=== PATIENT | female | born 1935 | race Caucasian/White ===

== ENCOUNTER 2016-07-18 10:08 | Inpatient (IN) | payer MEDICARE, BC ==
[~2016-07-18] VITALS: Ht 162.6 cm; Wt 88.7 kg
--- NOTE | ~2016-07-18 | WRIGHTHP ---
[place], [place] PATIENT HISTORY AND PHYSICAL EXAM NAME: TOM DOLAN UNIT #: [id number] ROOM: 507 DOCTOR: HINA WILLETT MD BIRTHDATE: [birth year] DOS: SUBJECTIVE: The patient is 80 years old, comes in with complaints of difficulty breathing. The patient states anytime she exerts self or bend over, she notices increasing shortness of breath. She denies having any chest pains or palpitations, does not have any fever or chills. She was found to have rapid AFib in the office, was found also to be hypoxic with the saturation of about 86 on room air so the patient was admitted to the hospital. This morning, the patient is feeling much better. The heart rate is much improved. She denies having any chest pains or palpitations, does not have any fever or chills. PAST MEDICAL HISTORY: Significant for: 1. Chronic atrial fibrillation, long-term use of anticoagulants. 2. History of diastolic heart failure. 3. Benign hypertension. 4. Hypothyroidism. 5. Postmenopausal osteoporosis. MEDICATIONS: That she is currently on are Diovan, hydrochlorothiazide, Synthroid, Nexium, vitamin D, Boniva, Coumadin. SOCIAL HISTORY: Nonsmoker, does not use any alcohol. OBJECTIVE EXAMINATION: GENERAL: The patient is awake and alert and oriented. VITAL SIGNS: Blood pressure is 111/57, pulse of 90s, respirations 18, temperature 97.8. LUNGS: Diminished breath sounds. No wheezes, rales or rhonchi heard. HEART: Regular. ABDOMEN: Obese, soft, nontender. EXTREMITIES: Without any edema. ASSESSMENT AND PLAN: 1. Acute hypoxic respiratory failure from acute diastolic dysfunction and the acute diastolic heart failure. Chest x-ray is pending. One dose of IV diuretics were given yesterday and the patient has diuresed nicely and her shortness of breath is improved. 2. Chronic atrial fibrillation with the rapid ventricular response, readjustment of cardiac medications were made. The plan is to discharge her to home tomorrow. Two doses of digoxin were given yesterday to control the heart rate. [place], [place] PATIENT HISTORY AND PHYSICAL EXAM NAME: TOM DOLAN UNIT #: [id number] ROOM: 507 DOCTOR: HINA WILLETT MD BIRTHDATE: [birth year] HINA WILLETT MD CM:HISPHYS:PATIENT HISTORY AND PHYSICAL EXAMINATION [id number] HINA WILLETT MD 07/20/16 0943 interface
--- NOTE | ~2016-07-18 | DS ---
[place], [place] DISCHARGE SUMMARY NAME: TOM DOLAN UNIT #: [id number] ROOM: 507 DOCTOR: HINA WILLETT MD BIRTHDATE: [birth year] DOS: 07/20/2016 DIAGNOSES: 1. Acute hypoxic respiratory failure. 2. Diastolic congestive heart failure, acute. 3. Chronic atrial fibrillation with rapid ventricular response. 4. Hypercoagulable state. 5. Long-term use of anticoagulants. 6. Benign hypertension. 7. Hypothyroidism. 8. Postmenopausal osteoporosis. 9. Osteoarthritis, primarily of the knee. HOSPITAL COURSE: This patient is 80 years old, comes in with complaints of difficulty breathing. The patient was evaluated in the office and was admitted. The patient denies having any chest pains, palpitations but she has been increasingly short of breath both on exertion and at rest. She was found to have rapid ventricular response of AFib, protime was pretty high with an INR of 4.8 in the office, we admitted the patient. She also was quite hypoxic. Oxygen saturation was in the 80s on room air. After evaluation, she was admitted with acute hypoxic respiratory failure from acute diastolic CHF. The patient was placed on diuretics, added low dose beta blockers and digoxin to control the heart rate with the diuretics she has diuresed nicely. Her shortness of breath and leg edema has improved. She is no longer hypoxic and she is on room air saturating at high 90s. Chest x-ray surprisingly did not show any evidence of CHF, but clinically the patient appears to be in CHF. Labs were all within normal limits. The patient was supposed to have the Coumadin held for 2 days, so today it will be restarted as an outpatient. She is overall stable and improved. She is advised to cut back on a salt intake. DISCHARGE MEDICATIONS: Carvedilol 3.125 twice a day, valsartan 160 mg daily, Lasix 40 Saturday, Saturday and Saturday; Nexium 40 daily, levothyroxine 100 mcg daily, Boniva 150 monthly, warfarin 2.5 daily, vitamin D2 of 50,000 units weekly. [place], [place] DISCHARGE SUMMARY NAME: TOM DOLAN UNIT #: [id number] ROOM: 507 DOCTOR: HINA WILLETT MD BIRTHDATE: [birth year] HINA WILLETT MD CM:NAVYA 6 [phone] HINA WILLETT MD 07/20/162028 interface
--- NOTE | ~2016-07-18 | PR ---
[place], [place] PROGRESS NOTE NAME: TOM DOLAN UNIT #: [id number] ROOM: 507 DOCTOR: HINA WILLETT MD BIRTHDATE: [birth year] DOS: SUBJECTIVE: The patient is 80 years old, comes in with complaints of difficulty breathing. The patient states anytime she exerts self or bend over, she notices increasing shortness of breath. She denies having any chest pains or palpitations, does not have any fever or chills. She was found to have rapid AFib in the office, was found also to be hypoxic with the saturation of about 86 on room air so the patient was admitted to the hospital. This morning, the patient is feeling much better. The heart rate is much improved. She denies having any chest pains or palpitations, does not have any fever or chills. PAST MEDICAL HISTORY: Significant for: 1. Chronic atrial fibrillation, long-term use of anticoagulants. 2. History of diastolic heart failure. 3. Benign hypertension. 4. Hypothyroidism. 5. Postmenopausal osteoporosis. MEDICATIONS: That she is currently on are Diovan, hydrochlorothiazide, Synthroid, Nexium, vitamin D, Boniva, Coumadin. SOCIAL HISTORY: Nonsmoker, does not use any alcohol. OBJECTIVE EXAMINATION: GENERAL: The patient is awake and alert and oriented. VITAL SIGNS: Blood pressure is 111/57, pulse of 90s, respirations 18, temperature 97.8. LUNGS: Diminished breath sounds. No wheezes, rales or rhonchi heard. HEART: Regular. ABDOMEN: Obese, soft, nontender. EXTREMITIES: Without any edema. ASSESSMENT AND PLAN: 1. Acute hypoxic respiratory failure from acute diastolic dysfunction and the acute diastolic heart failure. Chest x-ray is pending. One dose of IV diuretics were given yesterday and the patient has diuresed nicely and her shortness of breath is improved. 2. Chronic atrial fibrillation with the rapid ventricular response, readjustment of cardiac medications were made. The plan is to discharge her to home tomorrow. Two doses of digoxin were given yesterday to control the heart rate. [place], [place] PROGRESS NOTE NAME: TOM DOLAN UNIT #: [id number] ROOM: 507 DOCTOR: HINA WILLETT MD BIRTHDATE: [birth year] HINA WILLETT MD CM:PNTRANS [phone] HINA WILLETT MD 07/20/16 0944 LUIS WEBER.LIANA
--- NOTE | ~2016-07-18 | PR ---
[place], [place] PROGRESS NOTE NAME: TOM DOLAN UNIT #: [id number] ROOM: 507 DOCTOR: HINA WILLETT MD BIRTHDATE: [birth year] DOS: 07/20/2016 SUBJECTIVE: The patient is feeling fine and her shortness of breath has completely resolved. She has diuresed nicely. OBJECTIVE: VITAL SIGNS: Graphic trend shows a pressure of 196/60, pulse of 53, respirations 18 and temperature 97.9. LUNGS: Clear. HEART: Regular. ABDOMEN: Soft. EXTREMITIES: Without any edema. ASSESSMENT AND PLAN: 1. Chronic atrial fibrillation with rapid ventricular response, which is much improved. 2. Diastolic congestive heart failure, which is corrected. 3. Plan is to discharge her to home today. Follow up as an outpatient. HINA WILLETT MD CM:PNTRANS [id number] HINA WILLETT MD 07/21/16 0254 interface
[~2016-07-18 10:08] MED LIST: ARTHROTEC 75 751 ECT PO; ASMANEX220 MCG INH; ASPIRIN81 M1 PO; BP PILL; COLACE100 MG PO; DAYPRO600 M1 PO; DILTIAZEM HCL90 MG PO; DIOVAN HCT 12.51 TA2 PO; ELIQUIS5 M1 PO; HYDROCODONE BIT1 T11 PO; IBANDRONATE SO150 M1 PO; LOPRESSOR25 MG PO; LOVENOX30 MG/0.3 SC; MACROBID100 M1 PO; METOPROLOL TART50 M1 PO; NAPROSYN500 MG PO; NEXIUM40 MG PO; NORVASC2.5 MG PO; PERCOCET 325 MG1 TA3 PO; ROBAXIN750 MG PO; SYNTHROID,LEVO50 MCG; SYNTHROID0.112 MG PO; Synthroid,Lev100 MCG PO; VITAMIN D1000 IU; WARFARIN2 MG PO
[2016-07-18 10:35] VITALS: BP 138/100
[2016-07-18] MEDS ORDERED: DIOVAN/HCT 12.51 TAB PO (11:21)
[2016-07-18] MEDS ORDERED: VITAMIN D50000 I3 PO (11:33)
[2016-07-18 12:00] VITALS: BP 128/100
[2016-07-18 12:12] LABS: BASO # 0.1 10*3/uL (0.0-0.1); BASO % 0.9 % (0.0-1.0); EOS # 0.1 10*3/uL (0.0-0.4); EOS % 1.4 % (1.0-4.0); HEMATOCRIT 47.5 % (37.0-47.0); HEMOGLOBIN 15.1 g/dl (12.0-16.0); LYMPH # 1.7 10*3/uL (1.3-4.4); LYMPH % 26.8 % (27.0-41.0); MEAN CELL VOLUME 90.6 fl (81.0-99.0); MEAN CORPUSCULAR HGB 28.8 pg (27.0-31.0); MEAN CORPUSCULAR HGB CONC 31.8 g/dl (33.0-37.0); MEAN PLATELET VOLUME 10.6 fl (9.6-12.3); MONO # 0.5 10*3/uL (0.1-1.0); MONO % 7.4 % (3.0-9.0); NEUT % 63.2 % (47.0-73.0); PLATELET COUNT AUTOMATED 156 10*3/uL (130-400); RED BLOOD COUNT 5.24 10*6/uL (4.10-5.10); RED CELL DISTRI WIDTH 13.3 % (0-14.5); WHITE BLOOD COUNT 6.3 10*3/uL (4.8-10.8)
[2016-07-18 12:29] LABS: BUN 13 mg/dl (7-24); CARBON DIOXIDE 32 mmol/L (21-32); CHLORIDE 103 mmol/L (98-107); EST GLOM FILT AFRICAN AMERICAN > 60 ml/min; GLUCOSE 98 mg/dL (65-99); POTASSIUM 4.3 mmol/L (3.5-5.1); SODIUM 140 mmol/L (136-145)
[2016-07-18 14:46] VITALS: BP 110/68
[2016-07-18 16:00] VITALS: BP 117/68
[2016-07-18 20:00] VITALS: BP 99/60
[2016-07-19] VITALS: BP 105/73
[2016-07-19 07:31] LABS: PROTHROMBIN TIME 33.9 SECONDS (9.0-12.4)
[2016-07-19 07:41] LABS: DIGOXIN 0.55 ng/ml (0.8-2.0)
[2016-07-19 08:00] VITALS: BP 111/57; BP 118/62
[2016-07-19 12:00] VITALS: BP 109/72
[2016-07-19 16:00] VITALS: BP 110/58
[2016-07-19 20:00] VITALS: BP 107/71
[2016-07-20] VITALS: BP 99/50
[2016-07-20 08:00] VITALS: BP 96/60
[2016-07-20] MEDS ORDERED: LASIX40 MG PO (09:13)
[2016-07-20] MEDS ORDERED: VALSARTAN80 MG PO (09:13)
[2016-07-20] MEDS ORDERED: CARVEDILOL3.125 MG PO (09:13)
== END 2016-07-20 09:42 | disposition home or self-care (01) | DRG 291 ==
LOC: 5E 10:08
PROVIDERS: Internal Medicine
DX: I11.0 Hypertensive heart disease with heart failure (principal); J96.01 Acute respiratory failure with hypoxia; D68.59 Other primary thrombophilia; I50.31 Acute diastolic (congestive) heart failure; I48.2 Chronic atrial fibrillation; M17.10 Unilateral primary osteoarthritis, unspecified knee; M81.0 Age-related osteoporosis without current pathological fracture; E03.9 Hypothyroidism, unspecified; Z79.01 Long term (current) use of anticoagulants

== ENCOUNTER 2016-07-22 12:37 | Emergency (ER) | payer MEDICARE, BC ==
[~2016-07-22] VITALS: Wt 90.7 kg
[~2016-07-22 12:37] MED LIST changes: +CARVEDILOL3.125 MG PO; +DIOVAN/HCT 12.51 TAB PO; +LASIX40 MG PO; +VALSARTAN80 MG PO; +VITAMIN D50000 I3 PO
[2016-07-22 13:08] LABS: BASO # 0.1 10*3/uL (0.0-0.1); BASO % 0.9 % (0.0-1.0); EOS # 0.2 10*3/uL (0.0-0.4); EOS % 2.6 % (1.0-4.0); HEMOGLOBIN 16.2 g/dl (12.0-16.0); LYMPH # 2.1 10*3/uL (1.3-4.4); MEAN CELL VOLUME 89.3 fl (81.0-99.0); MEAN CORPUSCULAR HGB 28.9 pg (27.0-31.0); MEAN CORPUSCULAR HGB CONC 32.4 g/dl (33.0-37.0); MEAN PLATELET VOLUME 10.7 fl (9.6-12.3); MONO # 0.6 10*3/uL (0.1-1.0); MONO % 8.1 % (3.0-9.0); NEUT # 4.6 10*3/uL (2.3-7.9); NEUT % 59.9 % (47.0-73.0); PLATELET COUNT AUTOMATED 198 10*3/uL (130-400); RED CELL DISTRI WIDTH 13.2 % (0-14.5); WHITE BLOOD COUNT 7.6 10*3/uL (4.8-10.8)
[2016-07-22 13:17] LABS: INTERNATIONAL NORM RATIO 2.2 (2.0-3.5); PROTHROMBIN TIME 24.7 SECONDS (9.0-12.4)
[2016-07-22 13:24] LABS: ALBUMIN 3.5 gm/dl (3.1-4.5); ALKALINE PHOSPHATASE 88 U/L (45-117); BILIRUBIN, TOTAL 0.6 mg/dl (0.2-1.0); BUN 20 mg/dl (7-24); CARBON DIOXIDE 24 mmol/L (21-32); CHLORIDE 103 mmol/L (98-107); EST GLOM FILT AFRICAN AMERICAN > 60 ml/min; GLUCOSE 101 mg/dL (65-99); MAGNESIUM 1.9 mg/dL (1.5-2.1); POTASSIUM 4.5 mmol/L (3.5-5.1); SGOT/AST 29 IU/L (3-35); SGPT/ALT 17 U/L (12-78); SODIUM 138 mmol/L (136-145); TOTAL PROTEIN 6.8 gm/dL (6.4-8.2)
[2016-07-22 13:28] LABS: C-REACTIVE PROTEIN < 0.29 MG/DL (0-0.3); TROPONIN I < 0.015 ng/ml (<0.045)
== END 2016-07-22 15:26 | disposition home or self-care (01) ==
LOC: ED 12:37
PROVIDERS: Student in an Organized Health Care Education/Training Program
DX: S01.01XA Laceration without foreign body of scalp, initial encounter (principal); Z79.82 Long term (current) use of aspirin; Z79.01 Long term (current) use of anticoagulants; Z90.49 Acquired absence of other specified parts of digestive tract; Z79.899 Other long term (current) drug therapy; W18.31XA Fall on same level due to stepping on an object, initial encounter; Y93.89 Activity, other specified; Y92.9 Unspecified place or not applicable; Y99.9 Unspecified external cause status

== ENCOUNTER 2016-09-25 11:30 | Emergency (ER) | payer MEDICARE, BC ==
[~2016-09-25] VITALS: Ht 165.1 cm; Wt 88.9 kg
[2016-09-25] MEDS ORDERED: WARFARIN2 MG PO ×2 (11:38→11:39)
[2016-09-25] MEDS ORDERED: VALSARTAN-HCTZ1 EAC1 PO (11:41)
[2016-09-25] MEDS ORDERED: CARVEDILOL12.5 MG PO (11:41)
== END 2016-09-25 13:29 | disposition home or self-care (01) ==
LOC: ED 11:30
DX: S90.31XA Contusion of right foot, initial encounter (principal); Z79.02 Long term (current) use of antithrombotics/antiplatelets; Z79.899 Other long term (current) drug therapy; W22.8XXA Striking against or struck by other objects, initial encounter; Y93.89 Activity, other specified; Y92.812 Truck as the place of occurrence of the external cause; Y99.8 Other external cause status

== ENCOUNTER → 2016-11-16 | Outpatient (CLI) | payer MEDICARE, BC ==
[~2016-11-16] MED LIST changes: +CARVEDILOL12.5 MG PO; +VALSARTAN-HCTZ1 EAC1 PO
[2016-11-16 09:15] LABS: ALBUMIN 3.5 gm/dl (3.1-4.5); CREATININE 1.4 mg/dL (0.55-1.02); POTASSIUM 3.7 mmol/L (3.5-5.1)
[2016-11-16 09:22] LABS: THYROID STIM HORMONE (HS) 2.6 uIU/ml (0.358-4.75)
== END | disposition home or self-care (01) ==
LOC: LAB 01:55
PROVIDERS: Internal Medicine Cardiovascular Disease
DX: J90 Pleural effusion, not elsewhere classified (principal); I10 Essential (primary) hypertension; Z79.899 Other long term (current) drug therapy; Z86.73 Personal history of transient ischemic attack (TIA), and cerebral infarction without residual deficits

== ENCOUNTER 2017-08-20 15:43 | Inpatient (IN) | payer MEDICARE, BC ==
[~2017-08-20] VITALS: Ht 165.1 cm; Wt 89.2 kg
[2017-08-20] VITALS (10 sets, daily range): BP systolic 78–141; BP diastolic 32–91
--- NOTE | ~2017-08-20 | PR ---
[place], [place] PROGRESS NOTE NAME: TOM DOLAN UNIT #: [id number] ROOM: [facility] DOCTOR: HINA WILLETT MD BIRTHDATE: [birth year] DOS: 08/23/2017 SUBJECTIVE: The patient is about the same, had the pacemaker and she feels good and is not having any complaints. OBJECTIVE: VITAL SIGNS: Blood pressure is 116/58, pulse of 60, respirations 12, temperature 98.1. LUNGS: Clear. HEART: Regular. ABDOMEN: Soft. EXTREMITIES: Without any edema. LABORATORY DATA: Echocardiogram shows improvement in the LV function. Protime is still high with an INR of 4.0. ASSESSMENT AND PLAN: 1. The patient with severe bradycardia following beta ruthann. 2. History of atrial fibrillation, on long-term use of anticoagulants. 3. Pacemaker placement for bradycardia, stable and the plan is to discharge her today. HINA WILLETT MD CM:PNTRANS [phone] HINA WILLETT MD 08/23/17 1243 interface
--- NOTE | ~2017-08-20 | DS ---
[place], [place] DISCHARGE SUMMARY NAME: TOM DOLAN UNIT #: [id number] ROOM: [facility] DOCTOR: HINA WILLETT MD BIRTHDATE: [birth year] DOS: 08/23/2017 DATE OF ADMISSION: 08/20/2017 DATE OF DISCHARGE: 08/23/2017 DIAGNOSES: 1. Chronic atrial fibrillation, on long-term use of anticoagulants with elevated protimes. 2. Bradycardia with a junctional escape rhythm, status post pacemaker placement. 3. Moderate to severe pulmonary hypertension. 4. Benign hypertension with a normal ejection fraction. 5. History of cardiomyopathy. 6. History of primary osteoarthritis of knee joint, status post replacement. HOSPITAL COURSE: The patient is very well known to us, comes in with complaints of bruises all over her body and dizzy and lightheaded and chest pain. After she was found to be extremely bradycardic, heart rate in the 20s after being evaluated, she was admitted to ICU. Please refer to Dr. Garcia's H and P for further details. Dr. Merritt was consulted. Her medications were all discontinued. The patient was taken for pacemaker and she has been stable after that. Protime is still pretty elevated. Coumadin has been on hold for several days. The patient is stable and is not having any complaints today, so the plan is to discharge. Visiting nurses will be consulted. Follow up with Dr. Merritt as well as me. Protime will be done on Saturday. Coumadin is on hold. DISCHARGE MEDICATIONS: Will be Nexium 40 daily, levothyroxine 100 mcg daily, Boniva 150 daily, vitamin D 50,000 once a week, Lasix 40 daily, Coreg 12.5 b.i.d., valsartan 160 half a tablet daily. [place], [place] DISCHARGE SUMMARY NAME: TOM DOLAN UNIT #: [id number] ROOM: [facility] DOCTOR: HINA WILLETT MD BIRTHDATE: [birth year] HINA WILLETT MD CM:DISCHARG [phone] HINA WILLETT MD 08/23/17 1450 interface
--- NOTE | ~2017-08-20 | PR ---
[place], [place] PROGRESS NOTE NAME: TOM DOLAN UNIT #: [id number] ROOM: [facility] DOCTOR: HINA WILLETT MD BIRTHDATE: [birth year] DOS: 08/22/2017 SUBJECTIVE: The patient is feeling good. She has occasional episodes of tightness in the chest. She is going for a pacemaker this morning. PHYSICAL EXAMINATION: VITAL SIGNS: Pressure is 128/50, pulse of 50, respirations 12, temperature 98.1. LUNGS: Diminished breath sounds, clear. HEART: Regular. ABDOMEN: Obese, soft. EXTREMITIES: Without any edema. ASSESSMENT AND PLAN: Includes: 1. Severe bradycardia awaiting pacemaker. 2. Cardiomyopathy. We will restart Coreg after the pacemaker is placed. HINA WILLETT MD CM:PNTRANS [id number] [id number] HINA WILLETT MD 08/30/17 0935 interface
--- NOTE | ~2017-08-20 | WRIGHTHP ---
[place], [place] PATIENT HISTORY AND PHYSICAL EXAM [id number] UNIT #: [id number] ROOM: [facility] DOCTOR: JARED MOLINA MD BIRTHDATE: [birth year] DOS: 08/20/2017 HISTORY OF PRESENT ILLNESS: The patient is a 81-year-old female with previous history of: Atrial fibrillation, converted to normal sinus rhythm with amiodarone and cardioversion earlier this year. The patient anticoagulated with Coumadin. History of diastolic type congestive heart failure. Benign essential hypertension. Hypothyroidism. History of osteoarthritis of the knee. Postmenopausal osteoporosis. The patient presented to the Emergency Department with elevated INR and bruising off and on and her INR was found to be elevated to 7 but incidental finding was that the patient was bradycardic at the heart rate of as low as 26 beats per minute and it was a sinus bradycardia. Further questioning revealed that the patient has been dizzy off and on, especially when getting up from a sitting position, but no fainting episodes. No chest pain, no shortness of breath. REVIEW OF SYSTEMS: LUNGS: No increasing shortness of breath. GASTROINTESTINAL: No nausea, vomiting, diarrhea or constipation. CARDIOVASCULAR: History of dizziness off and on and postural hypotension. FAMILY HISTORY: Noncontributory. HOME MEDICATIONS: Amiodarone, furosemide, levothyroxine, Protonix, vitamin D, Coreg. ALLERGIES: No known drug allergies. PHYSICAL EXAMINATION: GENERAL: Alert and oriented x 3, in no visible distress. VITAL SIGNS: Heart rate is slow. HEENT AND NECK: Extraocular movements are intact. Sclerae are anicteric. Oral mucosa is moist and clean. No obvious facial weakness. Neck is supple without any lymphadenopathy. No thyromegaly. No JVD. No carotid arterial bruits. LUNGS: Clear to auscultation. No wheezing. No rhonchi. CARDIOVASCULAR SYSTEM: Heart rate is regular in rate and rhythm. S1 and S2 normally audible. No significant murmur or any other abnormal cardiac sounds. ABDOMEN: Soft, nontender. No obvious organomegaly. Bowel sounds are present. No obvious herniation. EXTREMITIES: Without significant cyanosis or edema. Warm to touch. CENTRAL NERVOUS SYSTEM: Alert and oriented x 3. Cranial nerves II-XII are intact. Speech is normal. The patient is able to move all extremities. Normal muscle strength. Deep tendon reflexes are equal on both sides. Plantars were downgoing. LABORATORY DATA: INR elevated at 7. Magnesium level 2.1, hemoglobin 10.1, normal platelets. IMPRESSION: 1. The patient with severe coagulopathy with INR of 7. Coumadin to be held back. [place], [place] PATIENT HISTORY AND PHYSICAL EXAM NAME: TOM DOLAN UNIT #: [id number] ROOM: [facility] DOCTOR: JESSE WINN,JARED Mehta BIRTHDATE: [birth year] 2. Severe sinus bradycardia with history of recurrent dizziness and lightheadedness. I am stopping Coreg and I will let Dr. Merritt, her med dir to decide about the amiodarone, which she takes for previous history of chronic atrial fibrillation. 3. Chronic diastolic type congestive heart failure. The patient to be continued on Lasix. 4. Hypothyroidism, treated with levothyroxine. The patient to be closely monitored in the ICU for severe bradycardia, which is symptomatic. INR is to be monitored daily. Coumadin is on hold. JARED MOLINA MD CM:HISPHYS:PATIENT HISTORY AND PHYSICAL EXAMINATION 14 23 JARED MOLINA MD 08/20/172022 interface
--- NOTE | ~2017-08-20 | PR ---
[place], [place] PROGRESS NOTE NAME: TOM DOLAN UNIT #: [id number] ROOM: [facility] DOCTOR: HINA WILLETT MD BIRTHDATE: [birth year] DOS: SUBJECTIVE: The patient is not having any complaints. She actually feels a little bit better than yesterday. OBJECTIVE: VITAL SIGNS: Graphic trend shows a pressure of 110/52, pulse of 41, respirations 12, temperature 97.7. LUNGS: Clear. HEART: Irregular. ABDOMEN: Obese. EXTREMITIES: Without any edema. LABORATORY DATA: None available today. Protime is still high with an INR of 5.3. ASSESSMENT AND PLAN: 1. Significant bradycardia and the patient is off Coreg. 2. Cardiomyopathy, ejection fraction of 35%-40%. The patient will have a repeat echocardiogram, may require a pacemaker for tachybrady versus an AICD pacemaker for her cardiomyopathy. Discussed with Dr. Merritt in detail and he will see the patient this morning and then will decide. 3. Long-term use of anticoagulants. The patient's protime is high, but it is slowly trending down. No new medications ordered. HINA WILLETT MD CM:PNTRANS [phone] HINA WILLETT MD 08/22/17 0135 interface
--- NOTE | ~2017-08-20 | O ---
[place], [place] OPERATIVE NOTE NAME: TOM DOLAN UNIT #: [id number] ROOM: [facility] DOCTOR: CAMILLE BARRERA MD BIRTHDATE: [birth year] DOS: 08/22/2017 PROCEDURE: Implantation of a dual chamber pacemaker. PREOPERATIVE DIAGNOSIS: Severe bradycardia and atrial fibrillation despite being off beta ruthann for 48 hours. POSTOPERATIVE DIAGNOSIS: Severe bradycardia and atrial fibrillation despite being off beta ruthann for 48 hours. NARRATIVE: The procedure was done in the operating room. Sedation was provided by the anesthesia service. Left subclavian area was prepped and draped for a sterile approach. 1% lidocaine was infiltrated locally and an 18-gauge Cook needle was introduced into the left subclavian vein. On first attempt, a J guidewire was then advanced into the right atrium and under fluoroscopy, a 4 cm incision was made below and parallel to the left clavicle traversing the entry side of the J guidewire. A 9-Danish peel-away sheath was then introduced without difficulty and a tined ventricular lead was then introduced into the right atrium. A curved stylet was introduced to advance the lead into the right ventricle. A straight stylet was introduced to negotiate the tip of the lead into the apex of the right ventricle and this was accomplished without difficulty. The measured data was satisfactory. A 7-Danish sheath was then introduced into the subclavian vein over a J guidewire that was left behind. The wire was removed and a screw in atrial lead was introduced into the right atrium. A J curved stylet was introduced which negotiated the tip of the lead into the right atrial appendage. It was screwed in place and measured, it was very satisfactory. The length of the leads was optimized and the sleeves on the leads were advanced to the entry side and tied in 3-0 Vicryl. A 3-0 Vicryl was used to immobilize the leads to the floor of the pacemaker pocket. There was some bleeding from the puncture site. Therefore, a single pursestring suture with 3-0 chromic catgut was placed and that stopped the bleeding. The pocket was irrigated with an antibiotic solution. The leads were then attached to the pacemaker generator, which was placed in the pocket with the leads located posteriorly. A single 3-0 Vicryl suture was used to immobilize the generator. Subcutaneous tissue was closed in 2 layers with 3-0 chromic catgut. This resulted in excellent skin apposition, no bleeding was identified and Dermabond was applied followed by application of a pressure dressing. CAR DEALER: None. SPECIMEN: None. BLOOD LOSS: None. COMPLICATIONS: None. The pacemaker generator was Medtronic, model A2DR01, serial number [id number]. The right atrial screw and lead model was 5076 - 52, serial number [id number] by Med[employer]. The ventricle lead model was [id number], serial number [id number], again by [employer]. [place], [place] OPERATIVE NOTE NAME: TOM DOLAN UNIT #: [id number] ROOM: [facility] DOCTOR: CAMILLE BARRERA MD BIRTHDATE: [birth year] MEASURED DATA: The P waves measured at 2.5 millivolts, impedance of 772 and threshold about 2.6 milliamps. The ventricle lead had a detected R-wave of 17 millivolts, impedance of 1302 and a threshold 1. For 11 millivolts and threshold of 1.0, impedance 1305. CAMILLE BARRERA MD CM:OPRECORD:OPERATIVE NOTE 1041 1303 JARED BARRERA MD 09/18/17 1340 interface
--- NOTE | ~2017-08-20 | EKG ---
[place], [place] ELECTROCARDIOGRAM REPORT NAME: TOM DOLAN UNIT #: [id number] ROOM: [facility] DOCTOR: CAMILLE BARRERA MD BIRTHDATE: [birth year] DOS: 08/20/2017 TIME: 1614 hours3 FINDINGS: 1. Junctional rhythm at 27 beats per minute. 2. An abnormal ECG. 3. No previous tracing is available for comparison. CAMILLE BARRERA MD CM:EKGRPT:ELECTROCARDIOGRAM REPORT [id number] CAMILLE BARRERA MD
--- NOTE | ~2017-08-20 | HM ---
[place], [place] HOLTER MONITOR REPORT NAME: TOM DOLAN UNIT #: [id number] ROOM: [facility] DOCTOR: CAMILLE BARRERA MD BIRTHDATE: [birth year] DOS: 08/22/2017 PROCEDURE: Implantation of a dual chamber pacemaker. PREOPERATIVE DIAGNOSIS: Severe bradycardia and atrial fibrillation despite being off beta ruthann for 48 hours. POSTOPERATIVE DIAGNOSIS: Severe bradycardia and atrial fibrillation despite being off beta ruthann for 48 hours. NARRATIVE: The procedure was done in the operating room. Sedation was provided by the anesthesia service. Left subclavian area was prepped and draped for a sterile approach. 1% lidocaine was infiltrated locally and an 18-gauge Cook needle was introduced into the left subclavian vein. On first attempt, a J guidewire was then advanced into the right atrium and under fluoroscopy, a 4 cm incision was made below and parallel to the left clavicle traversing the entry side of the J guidewire. A 9-Zambian peel-away sheath was then introduced without difficulty and a tined ventricular lead was then introduced into the right atrium. A curved stylet was introduced to advance the lead into the right ventricle. A straight stylet was introduced to negotiate the tip of the lead into the apex of the right ventricle and this was accomplished without difficulty. The measured data was satisfactory. A 7-Zambian sheath was then introduced into the subclavian vein over a J guidewire that was left behind. The wire was removed and a screw in atrial lead was introduced into the right atrium. A J curved stylet was introduced which negotiated the tip of the lead into the right atrial appendage. It was screwed in place and measured, it was very satisfactory. The length of the leads was optimized and the sleeves on the leads were advanced to the entry side and tied in 3-0 Vicryl. A 3-0 Vicryl was used to immobilize the leads to the floor of the pacemaker pocket. There was some bleeding from the puncture site. Therefore, a single pursestring suture with 3-0 chromic catgut was placed and that stopped the bleeding. The pocket was irrigated with an antibiotic solution. The leads were then attached to the pacemaker generator, which was placed in the pocket with the leads located posteriorly. A single 3-0 Vicryl suture was used to immobilize the generator. Subcutaneous tissue was closed in 2 layers with 3-0 chromic catgut. This resulted in excellent skin apposition, no bleeding was identified and Dermabond was applied followed by application of a pressure dressing. MASS SPEC: None. SPECIMEN: None. BLOOD LOSS: None. COMPLICATIONS: None. The pacemaker generator was Medtronic, model A2DR01, serial number [id number]. The right atrial screw and lead model was 5076 - 52, serial number [id number] by [employer]. The ventricle lead model was [id number], serial number [id number], again by [employer]. [place], [place] HOLTER MONITOR REPORT NAME: TOM DOLAN UNIT #: [id number] ROOM: [facility] DOCTOR: CAMILLE BARRERA MD BIRTHDATE: [birth year] MEASURED DATA: The P waves measured at 2.5 millivolts, impedance of 772 and threshold about 2.6 milliamps. The ventricle lead had a detected R-wave of 17 millivolts, impedance of 1302 and a threshold 1. For 11 millivolts and threshold of 1.0, impedance 1305. CAMILLE BARRERA MD CM:HOLTER:HOLTER MONITOR REPORT 1041 1303 JARED BARRERA MD
--- NOTE | ~2017-08-20 | EKG ---
[place], [place] ELECTROCARDIOGRAM REPORT NAME: TOM DOLAN UNIT #: [id number] ROOM: [facility] DOCTOR: CAMILLE BARRERA MD BIRTHDATE: [birth year] DOS: 08/21/2017 TIME: 0742 hours. FINDINGS: 1. Normal sinus rhythm with long pause and junctional escape beats with 3.2 second pause. 2. Low voltage ECG. 3. No previous tracing is available for comparison. CAMILLE BARRERA MD CM:EKGRPT:ELECTROCARDIOGRAM REPORT [id number] 0107 CAMILLE BARRERA MD
--- NOTE | ~2017-08-20 | CON ---
[place], [place] REPORT OF CONSULTATION NAME: TOM DOLAN UNIT #: [id number] ROOM: [facility] DOCTOR: CAMILLE BARRERA MD BIRTHDATE: [birth year] DOS: 08/21/2017 HISTORY OF PRESENT ILLNESS: This is a 81-year-old [place] woman with a history of essential hypertension, atrial fibrillation and a right-sided stroke. She has never had diabetes mellitus, COPD, or cancer, although perhaps had urinary tract infections. She had tonsillectomy, cholecystectomy and hysterectomy in the remote past and bilateral knee replacement too. She was seen in the Emergency Department because of ecchymotic areas of the left arm and while she was in the hospital, she was found to have a very slow heart rate. She has been feeling a little tired and sleepy, has had spinning sensation and weakness, but she has never passed out. She has been a little more short of breath than usual, but no orthopnea or swelling of the lower extremities. She has been taking her medication regularly and she does not believe she took any extra pills. In the Emergency Department, she was found to have profound bradycardia with heart rate in the 20s and was brought to the hospital to the ICU, where I was consulted. She was started on a dopamine drip, and amiodarone and carvedilol were discontinued. HOME MEDICATIONS: Included warfarin 4 mg alternating with 2 mg daily, Nexium 40 mg daily, levothyroxine 100 mcg daily, carvedilol 12.5 mg b.i.d., amiodarone 200 mg daily, and vitamin D. PHYSICAL EXAMINATION: GENERAL: This is a patient, who is very pleasant, alert, oriented. Her complexion is fine. She is not in any distress. There is no anemia, thyromegaly, or finger clubbing. VITAL SIGNS: Pulse is 56 and regular, blood pressure 112/42. NECK: JVP is normal. AJR is negative. No bruit in the neck. CARDIAC: Auscultation reveals a grade 2/6 pansystolic murmur over the apex, the A2 is of normal intensity. There is no edema in the lower extremity. Pedal pulses are palpable. RESPIRATORY: She has kyphosis and has crackles in the lower zones, more so on the right side. LABORATORY DATA: An ECG initially showed a junctional rhythm with heart rate in the 20s. Second ECG showed some atrial activity. Dopamine was discontinued about 10 minutes ago and she has sinus bradycardia with a heart rate around 49 to 52 beats per minute. Lab is unremarkable. Chest x-ray did not show any pulmonary edema. IMPRESSION: 1. This patient with a history of atrial fibrillation, has profound bradycardia/junctional escape rhythm due to the use of amiodarone and carvedilol. 2. There is no clinical or radiographic evidence of heart failure. 3. She has moderate to severe pulmonary hypertension. An echocardiogram was done today. It demonstrated an LV ejection fraction of [place], [place] REPORT OF CONSULTATION NAME: TOM DOLAN UNIT #: [id number] ROOM: [facility] DOCTOR: CAMILLE BARRERA MD BIRTHDATE: [birth year] 65% and normal right ventricular systolic function, left atrial enlargement and moderate mitral regurgitation, moderate tricuspid regurgitation with pulmonary artery systolic pressure of 60 mmHg, which indicates [id number] pulmonary hypertension. RECOMMENDATIONS: Amiodarone and carvedilol should be discontinued permanently and in a few days, propafenone 150 every 8 hours should be instituted to keep her in sinus rhythm. There is no indication for a pacemaker insertion at this time. I thank you for this consult. CAMILLE BARRERA MD CM:CONSTR:REPORT OF CONSULTATION 1829 08/31/17 0926 interface
--- NOTE | ~2017-08-20 | EKG ---
[place], [place] ELECTROCARDIOGRAM REPORT NAME: TOM DOLAN UNIT #: [id number] ROOM: [facility] DOCTOR: CAMILLE BARRERA MD BIRTHDATE: [birth year] DOS: 08/22/2017 TIME: 0936 hours Atrial pacing rate 60 beats per minute. Low voltage in precordial leads. An abnormal ECG. No previous tracing is available for comparison. CAMILLE BARRERA MD CM:EKGRPT:ELECTROCARDIOGRAM REPORT 0923 [id number] CAMILLE BARRERA MD
[2017-08-20 16:23] LABS: BASO # 0.1 10*3/uL (0.0-0.1); BASO % 0.8 % (0.0-1.0); EOS # 0.1 10*3/uL (0.0-0.4); EOS % 1.5 % (1.0-4.0); HEMATOCRIT 32.6 % (37.0-47.0); HEMOGLOBIN 10.1 g/dl (12.0-16.0); LYMPH # 1.5 10*3/uL (1.3-4.4); LYMPH % 23.9 % (27.0-41.0); MEAN CELL VOLUME 89.3 fl (81.0-99.0); MEAN CORPUSCULAR HGB 27.7 pg (27.0-31.0); MEAN PLATELET VOLUME 10.4 fl (9.6-12.3); MONO # 0.6 10*3/uL (0.1-1.0); MONO % 9.9 % (3.0-9.0); NEUT # 3.9 10*3/uL (2.3-7.9); NEUT % 63.4 % (47.0-73.0); PLATELET COUNT AUTOMATED 172 10*3/uL (130-400); RED BLOOD COUNT 3.65 10*6/uL (4.10-5.10); RED CELL DISTRI WIDTH 14.6 % (0-14.5); WHITE BLOOD COUNT 6.1 10*3/uL (4.8-10.8)
[2017-08-20 16:41] LABS: ALBUMIN 3.3 gm/dl (3.1-4.5); ALKALINE PHOSPHATASE 95 U/L (45-117); BUN 29 mg/dl (7-24); CHLORIDE 104 mmol/L (98-107); CREATININE 1.67 mg/dL (0.55-1.02); POTASSIUM 3.8 mmol/L (3.5-5.1); SGOT/AST 23 IU/L (3-35); SGPT/ALT 23 U/L (12-78); SODIUM 139 mmol/L (136-145); TOTAL PROTEIN 6.3 gm/dL (6.4-8.2)
[2017-08-20 16:43] LABS: TROPONIN I < 0.015 ng/ml (<0.045)
[2017-08-20] MEDS ORDERED: AMIODARONE HCL200 MG PO (18:14)
[2017-08-20] MEDS ORDERED: LASIX40 MG PO (18:16)
[2017-08-20] MEDS ORDERED: COREG12.5 M1 PO (18:18)
[2017-08-20] MEDS ORDERED: DIOVAN160 M2 PO (20:32)
[2017-08-21] VITALS (8 sets, daily range): BP systolic 110–145; BP diastolic 42–74
[2017-08-21 05:12] LABS: INTERNATIONAL NORM RATIO 5.3 (2.0-3.5)
[2017-08-22] VITALS (10 sets, daily range): BP systolic 102–152; BP diastolic 50–76
[2017-08-22 06:09] LABS: INTERNATIONAL NORM RATIO 4.3 (2.0-3.5)
[2017-08-23] VITALS: BP 96/48
[2017-08-23 04:00] VITALS: BP 116/58
[2017-08-23 08:00] VITALS: BP 130/58
== END 2017-08-23 13:25 | disposition home health service (06) | DRG 243 ==
LOC: ED 15:43 → ICCU 17:19 → EDHOLD 17:19 → ICCU 17:20
PROVIDERS: Emergency Medicine; Internal Medicine
PROC: 02H63JZ Insertion of Pacemaker Lead into Right Atrium, Percutaneous Approach (ICD-10-PCS; principal; 2017-08-22)
PROC: 0JH606Z Insertion of Pacemaker, Dual Chamber into Chest Subcutaneous Tissue and Fascia, Open Approach (ICD-10-PCS; principal; 2017-08-22)
PROC: 02HK3JZ Insertion of Pacemaker Lead into Right Ventricle, Percutaneous Approach (ICD-10-PCS; principal; 2017-08-22)
DX: R00.1 Bradycardia, unspecified (principal); D68.9 Coagulation defect, unspecified; I27.20 Pulmonary hypertension, unspecified; I08.1 Rheumatic disorders of both mitral and tricuspid valves; I50.32 Chronic diastolic (congestive) heart failure; I11.0 Hypertensive heart disease with heart failure; I42.9 Cardiomyopathy, unspecified; I48.2 Chronic atrial fibrillation; E03.9 Hypothyroidism, unspecified; M81.0 Age-related osteoporosis without current pathological fracture; Z96.651 Presence of right artificial knee joint; Z96.652 Presence of left artificial knee joint; Z79.01 Long term (current) use of anticoagulants; Z86.73 Personal history of transient ischemic attack (TIA), and cerebral infarction without residual deficits; Z79.899 Other long term (current) drug therapy; Z87.440 Personal history of urinary (tract) infections; Z90.710 Acquired absence of both cervix and uterus; Z90.49 Acquired absence of other specified parts of digestive tract; Z82.5 Family history of asthma and other chronic lower respiratory diseases

== ENCOUNTER → 2017-11-20 | Outpatient (CLI) | payer MEDICARE, BC ==
[~2017-11-20] MED LIST changes: +AMIODARONE HCL200 MG PO; +COREG12.5 M1 PO; +DIOVAN160 M2 PO
--- NOTE | ~2017-11-20 | PF ---
[place], [place] PULMONARY FUNCTION TEST NAME: TOM DOLAN UNIT #: [id number] ROOM: DOCTOR: PATITO BELTRAN MD,ALISON BIRTHDATE: [birth year] DOS: 11/20/2017 The test was ordered by Dr. Chriss Merritt. HISTORY: The patient is a 81-year-old outpatient, female, height of 65 inches, weight of 187 pounds. The PFT done for the patient for long-term medication assessment with amiodarone treatment for atrial fibrillation. The patient was reported symptoms of dyspnea with exertion. There was no cough or wheezing. Continue bronchodilators. SPIROMETRY: The FVC was noted as 1.76 liters, 66% predicted value, FEV1 of 1.40 liters, 69% predicted value. The ratio of FEV1/FVC recorded 79%, post-bronchodilator test was not performed. Flow volume loop was suggestive of mild obstructive airway pattern. Lung volumes, thoracic gas volume recorded as 65%, residual volume 76%, total lung capacity 73%. Lung volumes suggest a mild restrictive lung disease. The patient's lung diffusion recorded 55% without correction of carbon monoxide hemoglobin value patient. AIRWAY RESISTANCE: Airway resistance and passive conductance noted partially normal without any testing done post-bronchodilator. FINAL IMPRESSION: Current test suggestive of mild restrictive lung disease with moderate reduction in lung diffusion. The patient have a reversible obstruction lung disease. The patient at this time unknown because of lack of post-bronchodilator testing if clinically indicated, the patient may have spirometry and air resistance completed with patient postbronchodilator to assess the reversible obstructive lung disease. ALISON CAPUTO MD CM:PFREPORT:PULMONARY FUNCTION TEST [id number] ALISON BELTRAN MD
== END | disposition home or self-care (01) ==
LOC: CP 12:05
DX: I48.91 Unspecified atrial fibrillation (principal); E55.9 Vitamin D deficiency, unspecified; Z79.899 Other long term (current) drug therapy

== ENCOUNTER → 2018-12-09 | Outpatient (CLI) | payer MEDICARE, BC ==
[2018-12-09 09:17] LABS: ALBUMIN 3.5 gm/dl (3.1-4.5); CREATININE 1.47 mg/dL (0.55-1.02); POTASSIUM 4.6 mmol/L (3.5-5.1)
[2018-12-09 09:27] LABS: THYROID STIM HORMONE (HS) 3.34 uIU/ml (0.358-4.75); THYROXINE (T4) TOTAL 16.5 ug/dl (4.8-13.9); TOTAL PROTEIN 6.9 gm/dL (6.4-8.2)
== END | disposition home or self-care (01) ==
LOC: LAB 08:05
PROVIDERS: Internal Medicine Cardiovascular Disease
DX: I48.91 Unspecified atrial fibrillation (principal); Z79.899 Other long term (current) drug therapy

== ENCOUNTER → 2019-03-11 | Outpatient (CLI) | payer MEDICARE, BC ==
[2019-03-11 09:13] LABS: ALBUMIN 3.6 gm/dl (3.1-4.5); CREATININE 1.96 mg/dL (0.55-1.02); POTASSIUM 3.9 mmol/L (3.5-5.1); THYROXINE (T4) TOTAL 15.5 ug/dl (4.8-13.9); TOTAL PROTEIN 6.9 gm/dL (6.4-8.2)
[2019-03-11 09:19] LABS: THYROID STIM HORMONE (HS) 3.98 uIU/ml (0.358-4.75)
== END | disposition home or self-care (01) ==
LOC: LAB 03-10 08:42
PROVIDERS: Internal Medicine Cardiovascular Disease
DX: I48.91 Unspecified atrial fibrillation (principal); Z79.899 Other long term (current) drug therapy

== ENCOUNTER → 2021-02-07 | Outpatient (CLI) | payer MEDICARE, BC ==
[~2021-02-07] MED LIST changes: +BENICAR20 MG PO; +Coumadin2.5 MG PO; +PACERONE200 MG PO
== END | disposition home or self-care (01) ==
LOC: CARD 12:00
PROVIDERS: ATTEND Internal Medicine
DX: I34.0 Nonrheumatic mitral (valve) insufficiency (principal)

== ENCOUNTER → 2021-02-13 | Outpatient (CLI) | payer MEDICARE, BC | END | disposition home or self-care (01) | LOC: CARD 00:16 | PROVIDERS: ATTEND Internal Medicine | DX: I25.10 Atherosclerotic heart disease of native coronary artery without angina pectoris (principal); R06.02 Shortness of breath; R94.31 Abnormal electrocardiogram [ECG] [EKG] ==

== ENCOUNTER → 2022-02-05 | Outpatient (CLI) | payer MEDICARE, BC ==
[2022-02-05 13:23] LABS: BASO # 0.1 10*3/uL (0.0-0.1); BASO % 1.3 % (0.0-1.0); EOS # 0.1 10*3/uL (0.0-0.4); EOS % 2.1 % (1.0-4.0); LYMPH # 1.5 10*3/uL (1.3-4.4); LYMPH % 30.8 % (27.0-41.0); MEAN CELL VOLUME 72.8 fl (81.0-99.0); MEAN CORPUSCULAR HGB 19.6 pg (27.0-31.0); MEAN PLATELET VOLUME 9.6 fl (9.6-12.3); MONO # 0.4 10*3/uL (0.1-1.0); MONO % 8.6 % (3.0-9.0); NEUT # 2.7 10*3/uL (2.3-7.9); NEUT % 55.9 % (47.0-73.0); PLATELET COUNT AUTOMATED 205 10*3/uL (130-400); RED BLOOD COUNT 4.53 10*6/uL (4.10-5.10); RED CELL DISTRI WIDTH 19.3 % (0-14.5); WHITE BLOOD COUNT 4.7 10*3/uL (4.8-10.8)
[2022-02-05 13:42] LABS: CREATININE 1.75 mg/dL (0.55-1.02); FREE T4 1.63 ng/dl (0.89-1.76); POTASSIUM 4.5 mmol/L (3.4-5.1); THYROID STIM HORMONE (HS) 2.319 uIU/ml (0.550-4.780); TOTAL PROTEIN 6.6 gm/dL (6.0-8.0)
[2022-02-05 14:06] LABS: VITAMIN D, 25-HYDROXY 48.8 ng/mL (30-100)
== END | disposition home or self-care (01) ==
LOC: LAB 12:29
PROVIDERS: ATTEND Internal Medicine
DX: I48.21 Permanent atrial fibrillation (principal); I10 Essential (primary) hypertension; I25.10 Atherosclerotic heart disease of native coronary artery without angina pectoris; E03.9 Hypothyroidism, unspecified; I42.9 Cardiomyopathy, unspecified; E55.9 Vitamin D deficiency, unspecified

== ENCOUNTER → 2022-02-12 | Outpatient (CLI) | payer MEDICARE, BC | END | disposition home or self-care (01) | LOC: RAD 03:48 | PROVIDERS: ATTEND Internal Medicine | DX: M81.0 Age-related osteoporosis without current pathological fracture (principal) ==

== ENCOUNTER → 2022-07-05 | Outpatient (CLI) | payer MEDICARE, BC ==
[2022-07-05 11:28] LABS: BASO % 0.7 % (0.0-1.0); EOS # 0.1 10*3/uL (0.0-0.4); EOS % 1.8 % (1.0-4.0); HEMATOCRIT 34.4 % (37.0-47.0); LYMPH # 1.4 10*3/uL (1.3-4.4); LYMPH % 24.3 % (27.0-41.0); MEAN CELL VOLUME 72.9 fl (81.0-99.0); MEAN CORPUSCULAR HGB 19.9 pg (27.0-31.0); MEAN CORPUSCULAR HGB CONC 27.3 g/dl (33.0-37.0); MEAN PLATELET VOLUME 9.5 fl (9.6-12.3); MONO # 0.6 10*3/uL (0.1-1.0); MONO % 10.2 % (3.0-9.0); NEUT # 3.6 10*3/uL (2.3-7.9); NEUT % 62.6 % (47.0-73.0); PLATELET COUNT AUTOMATED 228 10*3/uL (130-400); RED BLOOD COUNT 4.72 10*6/uL (4.10-5.10); RED CELL DISTRI WIDTH 20.2 % (0-14.5); WHITE BLOOD COUNT 5.7 10*3/uL (4.8-10.8)
[2022-07-05 12:16] LABS: VITAMIN D, 25-HYDROXY 59.8 ng/mL (30-100)
[2022-07-05 12:18] LABS: FREE T4 1.48 ng/dl (0.89-1.76); POTASSIUM 3.5 mmol/L (3.4-5.1); THYROID STIM HORMONE (HS) 4.545 uIU/ml (0.550-4.780); TOTAL PROTEIN 6.5 gm/dL (6.0-8.0)
== END | disposition home or self-care (01) ==
LOC: LAB 11:09
PROVIDERS: ATTEND Internal Medicine
DX: I10 Essential (primary) hypertension (principal); E03.9 Hypothyroidism, unspecified; E11.9 Type 2 diabetes mellitus without complications; E78.2 Mixed hyperlipidemia; E55.9 Vitamin D deficiency, unspecified

== ENCOUNTER → 2022-07-11 | Outpatient (CLI) | payer MEDICARE, BC | END | disposition home or self-care (01) | LOC: CT 01:02 | PROVIDERS: ATTEND Internal Medicine | DX: K44.9 Diaphragmatic hernia without obstruction or gangrene (principal); K57.30 Diverticulosis of large intestine without perforation or abscess without bleeding; J98.11 Atelectasis; I51.7 Cardiomegaly; R10.9 Unspecified abdominal pain ==

== ENCOUNTER 2023-08-13 15:07 | Emergency (ER) | payer MEDICARE, BC ==
[~2023-08-13] VITALS: Ht 157.4 cm; Wt 75.3 kg
[2023-08-13] MEDS ORDERED: IOHEXOL 300 MG/ML 100 ML VIAL IV ONE (16:00)
[2023-08-13 16:09] LABS: BASO # 0.1 10*3/uL (0.0-0.1); EOS # 0.1 10*3/uL (0.0-0.4); HEMATOCRIT 37.4 % (37.0-47.0); LYMPH # 1.3 10*3/uL (1.3-4.4); LYMPH % 20.9 % (27.0-41.0); MEAN CELL VOLUME 77.4 fl (81.0-99.0); MEAN CORPUSCULAR HGB 22.6 pg (27.0-31.0); MEAN CORPUSCULAR HGB CONC 29.1 g/dl (33.0-37.0); MEAN PLATELET VOLUME 9.8 fl (9.6-12.3); MONO # 0.5 10*3/uL (0.1-1.0); MONO % 7.3 % (3.0-9.0); NEUT # 4.3 10*3/uL (2.3-7.9); NEUT % 69.5 % (47.0-73.0); PLATELET COUNT AUTOMATED 178 10*3/uL (130-400); RED BLOOD COUNT 4.83 10*6/uL (4.10-5.10); RED CELL DISTRI WIDTH 16.9 % (0-14.5); WHITE BLOOD COUNT 6.2 10*3/uL (4.8-10.8)
[2023-08-13 16:19] LABS: ACT PARTIAL THROMBO TIME 33.7 SECONDS (20.0-32.1)
[2023-08-13 16:25] LABS: LIPASE 50 U/L (12-53)
[2023-08-13 16:27] LABS: POTASSIUM 4.2 mmol/L (3.4-5.1); TOTAL PROTEIN 6.8 gm/dL (6.0-8.0)
[2023-08-13] MEDS ORDERED: Ondansetron Hydrochloride 4 MG/2 ML VIAL IV ONE (16:30)
[2023-08-13] MEDS ORDERED: VITAMIN D2 (ERGO) 1. PO (16:54)
[2023-08-13] MEDS ORDERED: WARFARIN SOD2 MG PO (16:56)
[2023-08-13 17:47] LABS: BILIRUBIN Negative (Negative); BLOOD Negative (Negative); CLARITY Clear (Clear); COLOR Yellow (Yellow); GLUCOSE Negative (Negative); KETONE Negative (Negative); UROBILINOGEN 0.2 E.U./dl (0.0-1.0)
[2023-08-13 17:48] LABS: LEUKO ESTERASE 3+ (Negative); NITRITE Negative (Negative)
[2023-08-13 17:50] LABS: WBC 16-20 wbc/hpf (0-5)
[2023-08-13] MEDS ORDERED: MORPHINE Sulfate 2 MG/ML SYR IV ONE (18:55)
[2023-08-13] MEDS ORDERED: HYDROmorphONE Hydrochloride 1 MG/ML SYR IV ONE (20:25)
== END 2023-08-13 23:20 | disposition short-term general hospital (02) ==
LOC: ED 15:07
PROVIDERS: Internal Medicine; Nurse Practitioner
DX: K31.89 Other diseases of stomach and duodenum (principal); I25.2 Old myocardial infarction; I50.9 Heart failure, unspecified; Z95.0 Presence of cardiac pacemaker; I48.91 Unspecified atrial fibrillation; Z79.01 Long term (current) use of anticoagulants; Z79.899 Other long term (current) drug therapy; Z90.711 Acquired absence of uterus with remaining cervical stump; Z90.89 Acquired absence of other organs; Z96.652 Presence of left artificial knee joint; Z90.49 Acquired absence of other specified parts of digestive tract

== ENCOUNTER → 2023-08-28 | Outpatient (CLI) | payer MEDICARE, BC ==
[~2023-08-28] MED LIST changes: +VITAMIN D2 (ERGO) 1. PO; +WARFARIN SOD2 MG PO
== END | disposition home or self-care (01) ==
LOC: RAD 13:05
PROVIDERS: ATTEND Specialist
DX: J98.11 Atelectasis (principal); K44.9 Diaphragmatic hernia without obstruction or gangrene

== ENCOUNTER 2024-04-10 08:14 | Emergency (ER) | payer MEDICARE, BC ==
[~2024-04-10] VITALS: Ht 165.1 cm; Wt 72.6 kg
[2024-04-10] MEDS ORDERED: Acetaminophen/Oxycodone 5 MG/325 MG TABLET PO ONE (08:40)
[2024-04-10] MEDS ORDERED: TRAMADOL HCL50 MG PO (09:00)
== END 2024-04-10 09:27 | disposition home or self-care (01) ==
LOC: ED 08:14
DX: M25.532 Pain in left wrist (principal); K21.9 Gastro-esophageal reflux disease without esophagitis; I11.0 Hypertensive heart disease with heart failure; I50.9 Heart failure, unspecified; J45.909 Unspecified asthma, uncomplicated; M19.90 Unspecified osteoarthritis, unspecified site; Z86.73 Personal history of transient ischemic attack (TIA), and cerebral infarction without residual deficits; Z90.89 Acquired absence of other organs; Z90.710 Acquired absence of both cervix and uterus; Z90.49 Acquired absence of other specified parts of digestive tract; Z96.653 Presence of artificial knee joint, bilateral

== ENCOUNTER → 2024-08-19 | Outpatient (CLI) | payer MEDICARE, BC ==
[~2024-08-19] MED LIST changes: +TRAMADOL HCL50 MG PO
[2024-08-19 11:10] LABS: BASO % 0.7 % (0.0-1.0); EOS # 0.1 10*3/uL (0.0-0.4); EOS % 2.3 % (1.0-4.0); HEMATOCRIT 38.3 % (37.0-47.0); MEAN CORPUSCULAR HGB 23.3 pg (27.0-31.0); MEAN CORPUSCULAR HGB CONC 29.5 g/dl (33.0-37.0); MEAN PLATELET VOLUME 9.9 fl (9.6-12.3); MONO # 0.5 10*3/uL (0.1-1.0); NEUT # 3.3 10*3/uL (2.3-7.9); NEUT % 55.5 % (47.0-73.0); PLATELET COUNT AUTOMATED 179 10*3/uL (130-400); RED BLOOD COUNT 4.85 10*6/uL (4.10-5.10); RED CELL DISTRI WIDTH 16.5 % (0-14.5)
[2024-08-19 11:48] LABS: ALKALINE PHOSPHATASE 104 U/L (46-116); BUN 23 mg/dl (9-23); CHLORIDE 101 mmol/L (98-107); CHOLESTEROL 198 mg/dL (<200); FREE T4 0.52 ng/dl (0.89-1.76); LDL CHOLESTEROL 110 mg/dL (9-159); POTASSIUM 4.4 mmol/L (3.4-5.1); TOTAL PROTEIN 6.7 gm/dL (6.0-8.0); TRIGLYCERIDES 129 mg/dl (<150)
[2024-08-19 11:50] LABS: VITAMIN D, 25-HYDROXY 117.1 ng/mL (30-100)
[2024-08-19 11:51] LABS: SGPT/ALT < 7 U/L (5-49)
== END | disposition home or self-care (01) ==
LOC: LAB 10:40
PROVIDERS: ATTEND Internal Medicine
DX: I12.9 Hypertensive chronic kidney disease with stage 1 through stage 4 chronic kidney disease, or unspecified chronic kidney disease (principal); N18.32 Chronic kidney disease, stage 3b; I48.21 Permanent atrial fibrillation; M81.0 Age-related osteoporosis without current pathological fracture; I42.9 Cardiomyopathy, unspecified; E03.9 Hypothyroidism, unspecified; M15.0 Primary generalized (osteo)arthritis; I25.10 Atherosclerotic heart disease of native coronary artery without angina pectoris; E55.9 Vitamin D deficiency, unspecified; E53.9 Vitamin B deficiency, unspecified; R62.7 Adult failure to thrive; R53.83 Other fatigue

== ENCOUNTER → 2025-02-23 | Outpatient (CLI) | payer MEDICARE, BC ==
[2025-02-23 10:49] LABS: FREE T4 0.2 ng/dl (0.89-1.76)
== END | disposition home or self-care (01) ==
LOC: LAB 10:02
PROVIDERS: ATTEND Internal Medicine
DX: E03.9 Hypothyroidism, unspecified (principal); Z13.0 Encounter for screening for diseases of the blood and blood-forming organs and certain disorders involving the immune mechanism; Z13.1 Encounter for screening for diabetes mellitus; Z13.21 Encounter for screening for nutritional disorder; Z13.220 Encounter for screening for lipoid disorders; Z13.228 Encounter for screening for other metabolic disorders; Z13.29 Encounter for screening for other suspected endocrine disorder; Z13.6 Encounter for screening for cardiovascular disorders; Z13.89 Encounter for screening for other disorder; Z13.9 Encounter for screening, unspecified